=== PATIENT | female | born 1945 | race Caucasian/White ===

== ENCOUNTER → 2016-07-29 | Outpatient (CLI) | payer MEDICARE, OTHER ==
[~2016-07-29] MED LIST: AZIT250T81 PO; CYCL10TA45 PO; DOCU-34 PO; DULO60CA7 PO; GBPN300C PO; HYDR-3811 PO; LEVO125T70 PO; OMEP40CA36 PO; PRAM0.12 GT; ZOLP5TAB PO
--- NOTE | 2016-07-30 08:47 | Diagnostic Imaging Report ---
EXAM: Bilateral Digital Screening Mammography with computer aided detection system (CAD). DATE: July 29, 2016. COMPARISON: March 11, 2015; August 27, 2014; January 08, 2014; January 03, 2013. INDICATION: Breast cancer screening. FINDINGS: The breasts are nearly entirely fatty. There are no suspicious findings in either breast. IMPRESSION: No mammographic evidence of malignancy. Recommend annual screening mammography and clinical breast exam. ACR BI-RADS Category 2: Benign findings. Result letter will be mailed to the patient. Note: At least 10% of breast cancer is not imaged by mammography. Dictated by: Dictated on workstation # [id number]
== END ==
LOC: RAD 13:23
PROVIDERS: ATTEND Family Medicine
DX: Z12.31 Encounter for screening mammogram for malignant neoplasm of breast (principal)

== ENCOUNTER → 2016-09-16 | Outpatient (CLI) | payer MEDICARE, OTHER ==
[2016-09-16 11:59] VITALS: BP 158/78
== END ==
LOC: MHUC 10:00
PROVIDERS: ATTEND Physician Assistant
DX: J01.00 Acute maxillary sinusitis, unspecified (principal); I10 Essential (primary) hypertension
CPT/HCPCS: 99213